=== PATIENT | male | born 1990 | race Caucasian/White ===

== ENCOUNTER 2020-05-08 03:16 | Emergency (ER) | payer SELFPAY ==
[2020-05-08] MEDS ORDERED: IV NORMAL SALINE 1000ML BAG 1,000 ML IV SCH (03:30)
[2020-05-08] MEDS ORDERED: 0.9 % SODIUM CHLORIDE 3ML DISP.SYRIN. IV PRN (03:30)
[2020-05-08] MEDS ORDERED: DEXAMETHASONE SOD PHOS 20 MG/5 ML VIAL. IVP ONE (03:45)
[2020-05-08] MEDS ORDERED: KETOROLAC 15 MG/ML VIAL. IVP ONE (03:45)
--- NOTE | 2020-05-08 06:26 | RAD ---
EXAM: CHEST ONE VIEW. HISTORY: Cough, shortness of breath. COMPARISON: None. FINDINGS: A frontal view of the chest is obtained. There are no confluent infiltrates. There is no pneumothorax or pleural effusion. The heart is not en larged. IMPRESSION: 1. No confluent infiltrates. Electronically signed by: Lb Dupree MD (05/08/2020 6:24 AM) [facility]
[2020-05-08 07:36] LABS: ALBUMIN 3.8 g/dL (3.4-5.0); ALBUMIN/GLOBULIN RATIO 0.9 (1.0-1.7); CALCIUM 8.7 mg/dL (8.5-10.1); CREATININE 1.1 mg/dL (0.7-1.3); GFR 79.1; POTASSIUM 3.7 mmol/L (3.5-5.1); TOTAL BILIRUBIN 0.4 mg/dL (0.2-1.0)
[2020-05-08 07:38] LABS: CREATINE KINASE 70 U/L (39-308)
[2020-05-08 09:29] LABS: BASO % 0 % (0-3); EOS # 0.1 x10^3/uL (0.0-0.7); EOS % 1 % (0-3); HEMATOCRIT 46.9 % (39.0-53.0); HEMOGLOBIN 15.9 g/dL (13.0-17.5); LYMPH # 2.8 x10^3/uL (1.0-4.8); LYMPH % 35 % (24-48); MEAN CORPUSCULAR HEMOGLOBIN 28 pg (25-35); MEAN CORPUSCULAR HGB CONC 34 g/dL (31-37); MEAN CORPUSCULAR VOLUME 83 fL (79-100); MONO # 0.6 x10^3/uL (0.0-1.1); MONO % 7 % (0-9); NEUT # 4.5 x10^3/uL (1.8-7.7); NEUT % 56 % (31-73); PLATELET COUNT 220 x10^3/uL (140-400); RED BLOOD COUNT 5.62 x10^6/uL (4.30-5.70); RED CELL DISTRIBUTION WIDTH 12.7 % (11.5-14.5); WHITE BLOOD COUNT 7.9 x10^3/uL (4.0-11.0)
[2020-05-08 09:32] LABS: D-DIMER < 0.27 ug/mlFEU (0.00-0.50); PARTIAL THROMBOPLASTIN TIME 27 SEC (24-38); PROTHROMBIN TIME PATIENT 12.9 SEC (11.7-14.0)
--- NOTE | 2020-05-09 14:02 | NUR ---
IP: Informed pt of negative COVID test. Pt verbalized understanding.
== END 2020-05-08 05:20 | disposition home or self-care (01) ==
LOC: ER 03:16
DX: R51.9 Headache, unspecified (principal); Z20.822 Contact with and (suspected) exposure to COVID-19; R07.89 Other chest pain; R06.02 Shortness of breath; R53.81 Other malaise
CPT/HCPCS: 36415; 71045; 80053; 82553; 83605; 83735; 84484; 85025; 85379; 85610; 85730; 96365; 96375; 99284; C9803; J1100; J1885; J7030; U0003